=== PATIENT | female | born 1955 | race Caucasian/White ===

== ENCOUNTER 2016-12-22 11:11 | Emergency (ER) | payer OTHER ==
[~2016-12-22] VITALS: Ht 154.9 cm; Wt 100.0 kg
[~2016-12-22 11:11] MED LIST: FOLIC ACID PO; LORATADINE PO; LOSARTAN POTASSIUM PO; METFORMIN PO; METHOTREXATE PO; NAPROXEN PO; OMEPRAZOLE PO
[2016-12-22] MEDS ORDERED: ACETAMINOPHEN 325MG TABLET PO STA (13:59)
[2016-12-22] MEDS ORDERED: SODIUM CHLORIDE 0.9% 1000ML BAG (SEPSIS BOLUS) IV ONE (14:00)
[2016-12-22 14:52] LABS: HEMATOCRIT. 30.9 % (36.0-48.0); HEMOGLOBIN. 10.1 g/dL (12.0-16.0); MEAN CORPUSCULAR HEMOGLOBIN 27.1 pg (28.0-32.0); MEAN CORPUSCULAR VOLUME 82.8 fL (81.0-99.0); MEAN PLATELET VOLUME 8.9 fl (7.4-10.4); PLATELET 365 x1000/uL (130-400); RED BLOOD CELL COUNT 3.73 mill/uL (4.2-5.4); RED CELL DISTRIBUTION WIDTH 20.2 % (11.6-14.6)
[2016-12-22] MEDS ORDERED: KETOROLAC 30MG/ML VIAL IV ONE (15:00)
[2016-12-22] MEDS ORDERED: ONDANSETRON HCL 4MG/2ML VIAL IV ONE (15:00)
[2016-12-22 15:01] LABS: INR 1.1
[2016-12-22 15:09] LABS: CARBON DIOXIDE 25 mEq/L (21-32); CHLORIDE 101 mEq/L (98-107); TROPONIN I < 0.02 ng/mL (0.00-0.04)
[2016-12-22 15:18] LABS: CLARITY URINE CLEAR (CLEAR); COLOR URINE YELLOW (YELLOW); GLUCOSE URINE NEGATIVE (NEGATIVE); KETONES URINE NEGATIVE (NEGATIVE); LEUKOCYTE ESTERASE URINE NEGATIVE (NEGATIVE); NITRITE URINE NEGATIVE (NEGATIVE); OCCULT BLOOD URINE NEGATIVE (NEGATIVE); PROTEIN URINE NEGATIVE (NEGATIVE); SPECIFIC GRAVITY URINE 1.006 (1.005-1.030); UROBILINOGEN URINE 0.2 E.U./dL (0.2-1.0)
[2016-12-22 15:35] LABS: NUCLEATED RED BLOOD CELLS 1 /100 WBC; PLATELET ESTIMATE NORMAL
[2016-12-22 18:01] VITALS: BP 120/68
== END 2016-12-22 18:12 | disposition home or self-care (01) ==
LOC: ER 13:08
DX: J01.80 Other acute sinusitis (principal); E11.9 Type 2 diabetes mellitus without complications; M19.90 Unspecified osteoarthritis, unspecified site; Z90.49 Acquired absence of other specified parts of digestive tract; Z79.84 Long term (current) use of oral hypoglycemic drugs; Z88.0 Allergy status to penicillin; Z88.2 Allergy status to sulfonamides
CPT/HCPCS: 36415; 70450; 70486; 71010; 80053; 81003; 82962; 83605; 84484; 85025; 85610; 86850; 86900; 86901; 87040; 87086; 93005; 96361; 96374; 96375; 99285; J1885; J2405; J7030; Z7610

== ENCOUNTER 2017-04-02 16:45 | Inpatient (IN) | payer OTHER ==
[~2017-04-02] VITALS: Ht 162.6 cm; Wt 79.8 kg
[2017-04-02] MEDS ORDERED: ACETAMINOPHEN 325MG TABLET PO STA (17:29)
[2017-04-02] MEDS ORDERED: SODIUM CHLORIDE 0.9% 1000ML BAG (SEPSIS BOLUS) IV ONE (17:30)
[2017-04-02] MEDS ORDERED: LEVOFLOXACIN 750MG PREMIX 150 ML IV ONE (17:30)
[2017-04-02 18:06] LABS: HEMATOCRIT. 28.1 % (36.0-48.0); HEMOGLOBIN. 9.5 g/dL (12.0-16.0); LYMPHOCYTES % 12.4 % (20.0-50.0); MEAN PLATELET VOLUME 9.2 fl (7.4-10.4); MONOCYTES % 7.5 % (2.0-8.0); NEUTROPHILS % 76.1 % (40.0-76.0); PLATELET 310 x1000/uL (130-400); RED BLOOD CELL COUNT 3.27 mill/uL (4.2-5.4); RED CELL DISTRIBUTION WIDTH 19.5 % (11.6-14.6)
[2017-04-02 18:09] LABS: CHLORIDE 104 mEq/L (98-107)
[2017-04-02 18:10] LABS: PARTIAL THROMBOPLASTIN TIME 25.2 sec (23.4-31.0); PROTHROMBIN TIME 10.7 sec (9.4-11.6)
[2017-04-02 18:11] LABS: CARBON DIOXIDE 24 mEq/L (21-32)
[2017-04-02] MEDS ORDERED: VANCOMYCIN 1 G PREMIX 200 ML IV SCH (18:15)
[2017-04-02 18:18] LABS: TROPONIN I < 0.02 ng/mL (0.00-0.04)
[2017-04-02] MEDS ORDERED: ASPIRIN 325MG EC TABLET PO ONE (20:45)
[2017-04-02 20:49] LABS: CLARITY URINE CLEAR (CLEAR); COLOR URINE YELLOW (YELLOW); GLUCOSE URINE NEGATIVE (NEGATIVE); KETONES URINE NEGATIVE (NEGATIVE); LEUKOCYTE ESTERASE URINE NEGATIVE (NEGATIVE); NITRITE URINE NEGATIVE (NEGATIVE); OCCULT BLOOD URINE NEGATIVE (NEGATIVE); PH URINE 5.5 (4.5-8.0); PROTEIN URINE NEGATIVE (NEGATIVE); SPECIFIC GRAVITY URINE 1.008 (1.005-1.030); UROBILINOGEN URINE 0.2 E.U./dL (0.2-1.0)
[2017-04-02] MEDS ORDERED: ONDANSETRON HCL 4MG/2ML VIAL IV ONE (21:00)
[2017-04-02 22:30] VITALS: BP 145/62
[2017-04-02] MEDS ORDERED: NAPROXEN 500 MG PO SCH (23:00)
[2017-04-02] MEDS ORDERED: OMEPRAZOLE 20 MG PO SCH (23:00)
[2017-04-02] MEDS ORDERED: DEXTROSE 50% WATER 50ML SYRINGE IV PRN (23:00)
[2017-04-02] MEDS ORDERED: NON FORMULARY PATIENT HOME MED EA XX SCH (23:00)
[2017-04-02] MEDS ORDERED: METHOTREXATE 2.5 MG PO SCH (23:00)
[2017-04-02 23:06] VITALS: BP 145/62
[2017-04-03] VITALS: BP_SYST 129; BP_SYST 135; BP_SYST 142; BP_DIAS 59; BP_DIAS 60; BP_DIAS 63
[2017-04-03] MEDS ORDERED: NAPROXEN 500MG TABLET PO PRN (00:30)
[2017-04-03 01:17] LABS: CREATINE KINASE MB FRACTION 1.1 ng/mL (0.5-3.6); TROPONIN I 0.03 ng/mL (0.00-0.04)
[2017-04-03 04:00] VITALS: BP 115/48
[2017-04-03] MEDS: OMEPRAZOLE 20MG CAPSULE EXTENDED RELEASE PO SCH ×2 (06:29→17:59)
[2017-04-03] MEDS: BLOOD SUGAR DIAGNOSTIC STRIP TEST SCH ×4 (06:31→20:58)
[2017-04-03 06:32] LABS: HEMATOCRIT 27.7 % (36.0-48.0); MEAN CORPUSCULAR HEMOGLOBIN 27.7 pg (28.0-32.0); MEAN CORPUSCULAR VOLUME 85.3 fL (81.0-99.0); PLATELET 297 x1000/uL (130-400); RED BLOOD CELL COUNT 3.24 mill/uL (4.2-5.4); RED CELL DISTRIBUTION WIDTH 19.1 % (11.6-14.6)
[2017-04-03 06:43] LABS: CARBON DIOXIDE 24 mEq/L (21-32); CHLORIDE 108 mEq/L (98-107); CREATINE KINASE 83 IU/L (26-192); CREATINE KINASE MB FRACTION 0.7 ng/mL (0.5-3.6); TROPONIN I < 0.02 ng/mL (0.00-0.04)
[2017-04-03] MEDS: INSULIN LISPRO 100 UNITS/ML SUBCUT SCH ×4 (07:50→21:00)
[2017-04-03] MEDS: LOSARTAN POTASSIUM 50 MG TABLET PO SCH ×2 (09:00→17:00)
[2017-04-03] MEDS ORDERED: LOSARTAN POTASSIUM 50 MG PO SCH (09:00)
[2017-04-03] MEDS ORDERED: METFORMIN 500 MG PO SCH (09:00)
[2017-04-03] MEDS: LORATADINE 10MG TABLET PO SCH (09:28)
[2017-04-03] MEDS: METFORMIN HCL 500MG TABLET PO SCH ×3 (09:28→18:00)
[2017-04-03 12:00] VITALS: BP 145/58
[2017-04-03 16:00] VITALS: BP 118/50
[2017-04-03 17:43] LABS: BASOPHILS % 3.8 % (0.0-2.0); EOSINOPHILS % 8.6 % (0.0-5.0); HEMATOCRIT. 27.7 % (36.0-48.0); HEMOGLOBIN. 9.1 g/dL (12.0-16.0); LYMPHOCYTES % 23.4 % (20.0-50.0); MEAN CORPUSCULAR HEMOGLOBIN 28.9 pg (28.0-32.0); MEAN PLATELET VOLUME 9.5 fl (7.4-10.4); MONOCYTES % 8.4 % (2.0-8.0); NEUTROPHILS % 55.8 % (40.0-76.0); PLATELET 289 x1000/uL (130-400); RED BLOOD CELL COUNT 3.15 mill/uL (4.2-5.4); RED CELL DISTRIBUTION WIDTH 19.6 % (11.6-14.6)
[2017-04-03 18:00] LABS: CARBON DIOXIDE 25 mEq/L (21-32); CHLORIDE 106 mEq/L (98-107)
[2017-04-03] MEDS ORDERED: LEVOFLOXACIN 500MG PREMIX 100 ML IV SCH (18:30)
[2017-04-03 20:00] VITALS: BP 133/63
[2017-04-04] VITALS: BP 129/56
[2017-04-04 04:00] VITALS: BP 136/54
[2017-04-04] MEDS: BLOOD SUGAR DIAGNOSTIC STRIP TEST SCH ×2 (06:27→12:20)
[2017-04-04] MEDS: OMEPRAZOLE 20MG CAPSULE EXTENDED RELEASE PO SCH (06:27)
[2017-04-04 07:15] VITALS: BP 146/64
[2017-04-04 07:15] LABS: *AMPHETAMINES SCREEN URINE NEGATIVE (NEGATIVE); *BARBITURATES SCREEN URINE NEGATIVE (NEGATIVE); *BENZODIAZEPINES SCREEN URINE NEGATIVE (NEGATIVE); *COCAINE SCREEN URINE NEGATIVE (NEGATIVE); CANNABINOID URINE SCREEN NEGATIVE (NEGATIVE); METHADONE URINE SCREEN NEGATIVE (NEGATIVE); OPIATES URINE SCREEN NEGATIVE (NEGATIVE); PHENCYCLIDINE URINE SCREEN NEGATIVE (NEGATIVE)
[2017-04-04] MEDS: INSULIN LISPRO 100 UNITS/ML SUBCUT SCH ×2 (07:50→12:50)
[2017-04-04] MEDS: METFORMIN HCL 500MG TABLET PO SCH (08:14)
[2017-04-04] MEDS: LOSARTAN POTASSIUM 50 MG TABLET PO SCH (08:15)
[2017-04-04] MEDS: LORATADINE 10MG TABLET PO SCH (08:15)
[2017-04-04 11:29] VITALS: BP 135/64
[2017-04-04 13:08] VITALS: BP 134/64
== END 2017-04-04 13:55 | disposition home or self-care (01) | DRG 48 ==
LOC: ER 16:45 → 6WST 19:13 → ENRESERV 19:39
PROVIDERS: ADMIT Family Medicine; ATTEND Family Medicine
DX: G90.8 Other disorders of autonomic nervous system (principal); E13.00 Other specified diabetes mellitus with hyperosmolarity without nonketotic hyperglycemic-hyperosmolar coma (NKHHC); E44.1 Mild protein-calorie malnutrition; I10 Essential (primary) hypertension; E11.9 Type 2 diabetes mellitus without complications; D64.9 Anemia, unspecified; E66.9 Obesity, unspecified; M19.90 Unspecified osteoarthritis, unspecified site; Z90.49 Acquired absence of other specified parts of digestive tract; Z88.0 Allergy status to penicillin; Z88.2 Allergy status to sulfonamides; Z79.84 Long term (current) use of oral hypoglycemic drugs; Z79.899 Other long term (current) drug therapy; Z68.30 Body mass index [BMI] 30.0-30.9, adult
CPT/HCPCS: 36415; 70450; 71010; 80048; 80053; 80305; 81003; 82550; 82553; 82962; 83605; 84484; 85025; 85027; 85610; 85730; 86850; 86900; 87040; 87086; 93005; 93306; 96365; 96366; 99291; J1956; J2405; J3370; J7030; J7050

== ENCOUNTER 2017-04-11 22:34 | Inpatient (IN) | payer OTHER ==
[~2017-04-11] VITALS: Ht 154.9 cm; Wt 71.2 kg
[2017-04-12] MEDS ORDERED: SODIUM CHLORIDE 0.9% 1,000 ML IV ONE (00:48)
[2017-04-12] MEDS ORDERED: ACETAMINOPHEN 325MG TABLET PO STA (00:48)
[2017-04-12] MEDS ORDERED: ONDANSETRON HCL 4MG/2ML VIAL IV ONE ×2 (01:00→02:45)
[2017-04-12 01:24] LABS: HEMATOCRIT. 29.8 % (36.0-48.0); HEMOGLOBIN. 9.5 g/dL (12.0-16.0); MEAN CORPUSCULAR HEMOGLOBIN 26.6 pg (28.0-32.0); MEAN CORPUSCULAR VOLUME 83.5 fL (81.0-99.0); MEAN PLATELET VOLUME 9.2 fl (7.4-10.4); PLATELET 337 x1000/uL (130-400); RED BLOOD CELL COUNT 3.57 mill/uL (4.2-5.4); RED CELL DISTRIBUTION WIDTH 19.4 % (11.6-14.6)
[2017-04-12 01:37] LABS: CHLORIDE 106 mEq/L (98-107)
[2017-04-12 01:42] LABS: CARBON DIOXIDE 26 mEq/L (21-32)
[2017-04-12 01:49] LABS: PLATELET ESTIMATE NORMAL
[2017-04-12 09:30] VITALS: BP 133/61
[2017-04-12 09:35] VITALS: BP 133/61
[2017-04-12 12:00] VITALS: BP 120/60
[2017-04-12] MEDS ORDERED: DEXTROSE 50% WATER 50ML SYRINGE IV PRN (15:30)
[2017-04-12 16:00] VITALS: BP 130/60
[2017-04-12] MEDS: INSULIN LISPRO 100 UNITS/ML SUBCUT SCH ×2 (17:50→21:00)
[2017-04-12] MEDS: BLOOD SUGAR DIAGNOSTIC STRIP TEST SCH ×2 (18:06→21:00)
[2017-04-12 18:37] LABS: AMYLASE 46 IU/L (25-115)
[2017-04-12] MEDS: SODIUM CHLORIDE 0.9% 1,000 ML IV SCH (19:12)
[2017-04-12 20:00] VITALS: BP 126/63
[2017-04-13] VITALS: BP 122/63
[2017-04-13 04:00] VITALS: BP 124/62
[2017-04-13] MEDS: BLOOD SUGAR DIAGNOSTIC STRIP TEST SCH ×2 (06:49→12:13)
[2017-04-13] MEDS: INSULIN LISPRO 100 UNITS/ML SUBCUT SCH ×2 (07:50→12:13)
[2017-04-13 08:00] VITALS: BP 125/61
[2017-04-13 12:00] VITALS: BP 144/108
[2017-04-13] MEDS ORDERED: CLONIDINE 0.1MG TABLET PO PRN (12:00)
[2017-04-13] MEDS: SODIUM CHLORIDE 0.9% 1,000 ML IV SCH (12:14)
[2017-04-13 13:37] VITALS: BP 133/64
== END 2017-04-13 14:10 | disposition home or self-care (01) | DRG 48 ==
LOC: ER 22:34 → 6EST 04-12 05:04 → ENRESERV 04-12 08:06
PROVIDERS: ADMIT Family Medicine; ATTEND Family Medicine
DX: E11.43 Type 2 diabetes mellitus with diabetic autonomic (poly)neuropathy (principal); I10 Essential (primary) hypertension; K31.84 Gastroparesis; E11.9 Type 2 diabetes mellitus without complications; D63.8 Anemia in other chronic diseases classified elsewhere; K52.9 Noninfective gastroenteritis and colitis, unspecified; E66.9 Obesity, unspecified; M19.90 Unspecified osteoarthritis, unspecified site; E78.00 Pure hypercholesterolemia, unspecified; Z88.0 Allergy status to penicillin; Z88.2 Allergy status to sulfonamides; Z90.49 Acquired absence of other specified parts of digestive tract; Z87.440 Personal history of urinary (tract) infections; Z68.29 Body mass index [BMI] 29.0-29.9, adult; Z79.84 Long term (current) use of oral hypoglycemic drugs; Z79.899 Other long term (current) drug therapy
CPT/HCPCS: 36415; 70450; 71010; 74000; 76700; 80048; 82150; 82962; 83690; 85025; 93005; 96361; 96374; 96376; 99285; J2405; J7030

== ENCOUNTER 2020-03-27 11:07 | Inpatient (IN) | payer OTHER ==
[~2020-03-27] VITALS: Ht 157.5 cm; Wt 93.6 kg
[~2020-03-27 11:07] MED LIST changes: +NAPR-681 PO; -NAPROXEN PO
[2020-03-27] MEDS ORDERED: LORAZEPAM 2MG/ML CPJ ONE (11:40)
[2020-03-27 11:45] LABS: BASOPHILS % 1.3 % (0.0-2.0); EOSINOPHILS % 2.4 % (0.0-5.0); HEMATOCRIT. 34.1 % (36.0-48.0); HEMOGLOBIN. 11.1 g/dL (12.0-16.0); LYMPHOCYTES % 12.5 % (20.0-50.0); MEAN CORPUSCULAR HEMOGLOBIN 29.4 pg (28.0-32.0); MEAN CORPUSCULAR VOLUME 90.2 fL (81.0-99.0); MEAN PLATELET VOLUME 9.4 fl (7.4-10.4); MONOCYTES % 5.2 % (2.0-8.0); NEUTROPHILS % 78.6 % (40.0-76.0); PLATELET 298 x1000/uL (130-400); RED BLOOD CELL COUNT 3.78 mill/uL (4.2-5.4); RED CELL DISTRIBUTION WIDTH 20.1 % (11.6-14.6)
[2020-03-27] MEDS ORDERED: LORAZEPAM 2MG/ML CPJ IV ONE (11:45)
[2020-03-27] MEDS ORDERED: LEVETIRACETAM 1000MG/100ML 100 ML IV ONE (11:45)
[2020-03-27 11:55] LABS: PROTHROMBIN TIME 10.3 sec (9.6-11.0)
[2020-03-27 11:59] LABS: ETHANOL BLOOD < 10 mg/dL
[2020-03-27 12:01] LABS: LDL CHOLESTEROL 115 mg/dL (5-100)
[2020-03-27 12:03] LABS: CREATINE KINASE 106 IU/L (26-192)
[2020-03-27 12:30] LABS: CHLORIDE 104 mEq/L (98-107)
[2020-03-27 12:48] LABS: CLARITY URINE CLEAR (CLEAR); COLOR URINE YELLOW (YELLOW); KETONES URINE NEGATIVE (NEGATIVE); LEUKOCYTE ESTERASE URINE NEGATIVE (NEGATIVE); NITRITE URINE NEGATIVE (NEGATIVE); OCCULT BLOOD URINE NEGATIVE (NEGATIVE); PH URINE 7.5 (4.5-8.0); PROTEIN URINE NEGATIVE (NEGATIVE); UROBILINOGEN URINE 0.2 E.U./dL (0.2-1.0)
[2020-03-27 13:00] LABS: *AMPHETAMINES SCREEN URINE NEGATIVE (NEGATIVE)
[2020-03-27 13:01] LABS: *BARBITURATES SCREEN URINE NEGATIVE (NEGATIVE); *BENZODIAZEPINES SCREEN URINE NEGATIVE (NEGATIVE); *COCAINE SCREEN URINE NEGATIVE (NEGATIVE); METHADONE URINE SCREEN NEGATIVE (NEGATIVE); OPIATES URINE SCREEN NEGATIVE (NEGATIVE); PHENCYCLIDINE URINE SCREEN NEGATIVE (NEGATIVE)
[2020-03-27 13:02] LABS: CANNABINOID URINE SCREEN NEGATIVE (NEGATIVE)
[2020-03-27] MEDS ORDERED: PHENYTOIN SODIUM 500 MG in SODIUM CHLORIDE 0.9% 50 ML IV ONE (13:15)
[2020-03-27] MEDS: SODIUM CHLORIDE 0.9% 1,000 ML IV SCH (21:00)
[2020-03-27] MEDS ORDERED: ONDANSETRON HCL 4MG/2ML INJ IV PRN (21:00)
[2020-03-27] MEDS ORDERED: DIPHENHYDRAMINE 50MG/ML VIAL IV PRN (21:00)
[2020-03-27] MEDS ORDERED: LEVETIRACETAM 500 MG in SODIUM CHLORIDE 0.9% 100 ML IV SCH (21:00)
[2020-03-27] MEDS ORDERED: ACETAMINOPHEN 325MG TABLET PO PRN (21:00)
[2020-03-27] MEDS ORDERED: LORAZEPAM 2MG/ML CPJ IV PRN (21:00)
[2020-03-27] MEDS ORDERED: CLONIDINE 0.1MG TABLET PO PRN (21:00)
[2020-03-27] MEDS ORDERED: HYDRALAZINE 20MG/ML VIAL IV PRN (21:00)
[2020-03-27] MEDS: LEVETIRACETAM 500MG PREMIX 100 ML IV SCH (21:30)
[2020-03-27] MEDS ORDERED: PHENYTOIN SODIUM 300 MG in SODIUM CHLORIDE 0.9% 50 ML IV SCH (22:00)
[2020-03-27] MEDS ORDERED: MORPHINE SULFATE 4 MG/ML CPJ (NOT FOR IM USE) IV PRN (23:30)
[2020-03-27] MEDS: ACETAMINOPHEN 325MG TABLET PO PRN (23:36)
[2020-03-28] VITALS (13 sets, daily range): BP systolic 105–145; BP diastolic 46–77
[2020-03-28] MEDS ORDERED: DEXTROSE 50% WATER 50ML SYRINGE IV PRN (01:00)
[2020-03-28] MEDS: BLOOD SUGAR DIAGNOSTIC STRIP TEST SCH ×4 (07:30→21:00)
[2020-03-28] MEDS: INSULIN LISPRO 100 UNITS/ML SUBCUT SCH ×4 (08:00→21:00)
[2020-03-28] MEDS: ACETAMINOPHEN 325MG TABLET PO PRN (11:53)
[2020-03-28] MEDS ORDERED: LIDOCAINE HCL 1% 20ML VIAL (Pyxis) INJ ONE (13:00)
[2020-03-28] MEDS ORDERED: SODIUM BICARBONATE 4% (2.4MEQ) 5ML VIAL IV ONE (13:01)
[2020-03-28] MEDS ORDERED: IOHEXOL-300 50 ML BOTTLE IV ONE (13:20)
[2020-03-28] MEDS ORDERED: PHENYTOIN SODIUM 500 MG in SODIUM CHLORIDE 0.9% 50 ML IV SCH (14:00)
[2020-03-28] MEDS: SODIUM CHLORIDE 0.9% 1,000 ML IV SCH ×2 (14:32→17:38)
[2020-03-28] MEDS: LEVETIRACETAM 500MG PREMIX 100 ML IV SCH ×2 (15:49→21:09)
[2020-03-28] MEDS: PHENYTOIN SODIUM 300 MG in SODIUM CHLORIDE 0.9% 50 ML IV SCH (19:05)
[2020-03-29] VITALS (11 sets, daily range): BP systolic 125–150; BP diastolic 48–86
[2020-03-29] MEDS: SODIUM CHLORIDE 0.9% 1,000 ML IV SCH ×2 (03:02→12:27)
[2020-03-29] MEDS: PHENYTOIN SODIUM 300 MG in SODIUM CHLORIDE 0.9% 50 ML IV SCH (06:23)
[2020-03-29 07:09] LABS: BASOPHILS % 0.9 % (0.0-2.0); EOSINOPHILS % 0.7 % (0.0-5.0); LYMPHOCYTES % 28.1 % (20.0-50.0); MEAN CORPUSCULAR HEMOGLOBIN 29.7 pg (28.0-32.0); MEAN PLATELET VOLUME 9.5 fl (7.4-10.4); MONOCYTES % 9.6 % (2.0-8.0); NEUTROPHILS % 60.7 % (40.0-76.0); PLATELET 264 x1000/uL (130-400); RED BLOOD CELL COUNT 3.37 mill/uL (4.2-5.4); RED CELL DISTRIBUTION WIDTH 19.7 % (11.6-14.6)
[2020-03-29 07:28] LABS: CHLORIDE 107 mEq/L (98-107)
[2020-03-29] MEDS: INSULIN LISPRO 100 UNITS/ML SUBCUT SCH ×3 (08:00→17:04)
[2020-03-29] MEDS: BLOOD SUGAR DIAGNOSTIC STRIP TEST SCH ×3 (08:16→17:04)
[2020-03-29] MEDS: LEVETIRACETAM 500MG PREMIX 100 ML IV SCH (08:17)
== END 2020-03-29 18:00 | disposition home or self-care (01) | DRG 53 ==
LOC: ER 11:07 → 5EST 11:49 → EDBEDREQ 11:58 → ENRESERV 22:02
PROVIDERS: ADMIT Internal Medicine; ATTEND Internal Medicine
PROC: 05HY33Z Insertion of Infusion Device into Upper Vein, Percutaneous Approach (ICD-10-PCS; principal; 2020-03-28)
PROC: B54MZZA Ultrasonography of Right Upper Extremity Veins, Guidance (ICD-10-PCS; 2020-03-28)
PROC: 02HV33Z Insertion of Infusion Device into Superior Vena Cava, Percutaneous Approach (ICD-10-PCS; 2020-03-28)
PROC: B518ZZA Fluoroscopy of Superior Vena Cava, Guidance (ICD-10-PCS; 2020-03-28)
PROC: B548ZZA Ultrasonography of Superior Vena Cava, Guidance (ICD-10-PCS; 2020-03-28)
DX: G40.909 Epilepsy, unspecified, not intractable, without status epilepticus (principal); I10 Essential (primary) hypertension; E11.9 Type 2 diabetes mellitus without complications; Z88.0 Allergy status to penicillin; Z88.2 Allergy status to sulfonamides; Z79.899 Other long term (current) drug therapy; Z90.49 Acquired absence of other specified parts of digestive tract; Z98.891 History of uterine scar from previous surgery; Z86.011 Personal history of benign neoplasm of the brain; Z82.49 Family history of ischemic heart disease and other diseases of the circulatory system
CPT/HCPCS: 36415; 36573; 70551; 71045; 76700; 76937; 80048; 80053; 80185; 80305; 80320; 81003; 82550; 82962; 83036; 83721; 83735; 83880; 84484; 85025; 93005; 96365; 97161; 97166; 99291; C1725; J1165; J1953; J2060; J2270; J2405; J3490; Q9967; G0480

== ENCOUNTER 2021-05-10 10:39 | Emergency (ER) | payer OTHER ==
[~2021-05-10] VITALS: Ht 152.4 cm; Wt 82.0 kg
[2021-05-10] MEDS ORDERED: NITROGLYCERIN 0.4MG TABLET SL SL PRN (11:15)
[2021-05-10] MEDS ORDERED: ASPIRIN 81MG TABLET PO ONE (11:15)
[2021-05-10 12:19] LABS: CHLORIDE 108 mEq/L (98-107)
[2021-05-10 12:32] LABS: D-DIMER 0.41 mg/L FEU (<0.50); INR 0.9; PARTIAL THROMBOPLASTIN TIME 25.1 sec (23.4-31.0); PROTHROMBIN TIME 10.1 sec (9.6-11.0)
[2021-05-10 12:36] LABS: BASOPHILS % 1.2 % (0.0-2.0); HEMATOCRIT. 30.3 % (36.0-48.0); HEMOGLOBIN. 10.7 g/dL (12.0-16.0); LYMPHOCYTES % 22.1 % (20.0-50.0); MEAN CORPUSCULAR HEMOGLOBIN 32.8 pg (28.0-32.0); MEAN CORPUSCULAR VOLUME 92.8 fL (81.0-99.0); MEAN PLATELET VOLUME 9.4 fl (7.4-10.4); MONOCYTES % 5.4 % (2.0-8.0); NEUTROPHILS % 68.3 % (40.0-76.0); PLATELET 318 x1000/uL (130-400); RED BLOOD CELL COUNT 3.27 mill/uL (4.2-5.4); RED CELL DISTRIBUTION WIDTH 19.1 % (11.6-14.6)
[2021-05-10 19:12] VITALS: BP 141/42
== END 2021-05-10 19:38 | disposition home or self-care (01) ==
LOC: ER 10:39 → CANBEDREQ 19:51
DX: R07.89 Other chest pain (principal); I10 Essential (primary) hypertension; E11.9 Type 2 diabetes mellitus without complications; Z20.822 Contact with and (suspected) exposure to COVID-19; Z88.0 Allergy status to penicillin; Z88.2 Allergy status to sulfonamides; Z98.890 Other specified postprocedural states; Z90.49 Acquired absence of other specified parts of digestive tract; Z86.59 Personal history of other mental and behavioral disorders
CPT/HCPCS: 36415; 71045; 80053; 83880; 84484; 85025; 85379; 87426; 93005; 99285

== ENCOUNTER 2024-01-23 13:11 | Emergency (ER) | payer MEDICAID, MEDICARE, OTHER ==
[~2024-01-23] VITALS: Ht 160 cm; Wt 75.0 kg
[~2024-01-23 13:11] MED LIST changes: +AMLO10TA80 MT; +ASPI-1497 MT; +ESOM20CA58 MT; +MAGN400C PO; +METO100T16 PO; +METO25TA6 MT; +NEO/5DRO3 EACHEYE; +PHEN300C6 MT; +VIT59LIQ SL
[2024-01-23 13:12] VITALS: O2SAT 98
[2024-01-23] MEDS: ONDANSETRON HCL 4MG/2ML INJ IV STA (16:19)
[2024-01-23] MEDS: KETOROLAC 30MG/ML VIAL IV STA (16:19)
[2024-01-23] MEDS: SODIUM CHLORIDE 0.9% 1,000 ML IV ONE (16:20)
[2024-01-23 16:50] LABS: BASOPHILS % 0.9 % (0.0-2.0); EOSINOPHILS % 1.7 % (0.0-5.0); HEMATOCRIT. 25.4 % (36.0-48.0); HEMOGLOBIN. 8.5 g/dL (12.0-16.0); LYMPHOCYTES % 19.1 % (20.0-50.0); MEAN CORPUSCULAR HEMOGLOBIN 31.2 pg (28.0-32.0); MEAN CORPUSCULAR HGB CONC 33.5 g/dL (31.0-37.0); MONOCYTES % 4.4 % (2.0-8.0); NEUTROPHILS % 73.9 % (40.0-76.0); PLATELET 422 x1000/uL (130-400); RED BLOOD CELL COUNT 2.73 mill/uL (4.2-5.4); RED CELL DISTRIBUTION WIDTH 18.9 % (11.6-14.6); WHITE BLOOD COUNT 12.1 x1000/uL (4.5-11.0)
[2024-01-23 16:56] LABS: CHLORIDE 98 mEq/L (98-107); POTASSIUM 3.5 mEq/L (3.5-5.1); SODIUM 132 mEq/L (136-145)
[2024-01-23 16:57] LABS: CALCIUM 7.7 mg/dL (8.7-10.4); CARBON DIOXIDE 24 mEq/L (21-32)
[2024-01-23 17:02] LABS: CREATININE 0.9 mg/dL (0.6-1.0); GLUCOSE 104 mg/dL (70-105); UREA NITROGEN BLOOD 15 mg/dL (9-23)
[2024-01-23 17:03] LABS: PHENYTOIN < 2.0 ug/mL (10-20); TROPONIN I HIGH SENSITIVITY 17 ng/L (3.0-34)
[2024-01-23 17:04] LABS: ALANINE AMINOTRANSFERASE 17 IU/L (10-49); ALBUMIN 3.3 g/dL (3.2-4.8); ASPARTATE AMINOTRANSFERASE 17 IU/L (<34); BILIRUBIN TOTAL 0.3 mg/dL (0.1-1.0)
[2024-01-23] MEDS: MECLIZINE 25MG TABLET PO ONE (17:19)
[2024-01-23] MEDS ORDERED: MECL-299 MT (17:56)
[2024-01-23 18:13] VITALS: BP 123/52; PULSE 71; RESP 18; TEMP 99
== END 2024-01-23 18:18 | disposition home or self-care (01) ==
LOC: ER 13:32
DX: R51.9 Headache, unspecified (principal); R42 Dizziness and giddiness; E11.9 Type 2 diabetes mellitus without complications; I10 Essential (primary) hypertension; Z88.0 Allergy status to penicillin; Z88.2 Allergy status to sulfonamides; Z79.899 Other long term (current) drug therapy
CPT/HCPCS: 99285; 96374; 70450; 71045; 96361; 96375; 80053; 80185; 85025; 84484; 36415; 93005; J8597; J1885; J2405; J7030; C1893